=== PATIENT | male | born 1970 | race Caucasian/White ===

== ENCOUNTER 2021-09-10 08:25 | Day surgery (SDC) | payer BC, SELFPAY ==
[2021-09-10 08:53] VITALS: BMI 31.8
[2021-09-10 09:01] LABS: COVID19 -Nasal RAPID Negative (Negative)
--- NOTE | 2021-09-10 09:24 | PM.HP.1 ---
History of Present Illness History of Present Illness Date Patient Seen: 09/10/21 Time Patient Seen: 09:25 Chief complaint: SDC Narrative: The patient presents for colorectal sreening. They have never had any previous examination for such. No personal or family history of colon cancer. On further history denies any recent gastrointestinal symptoms. No nausea, vomiting, abdominal pain, loss of appetite, unexplained weight loss, change in bowel habits, diarrhea, constipation, melena, hematochezia, or bright red blood per rectum. Patient History Medical History Dilated aortic root HTN (hypertension) Hyperlipidemia Hypothyroidism (acquired) Family & Social History Social History: household members spouse Tobacco & Substance use: Smoking Status Never smoker alcohol intake current Meds Home Medications and Allergies Home Medications Medication Instructions Recorded Confirmed Type atorvastatin 20 mg tablet 20 mg PO DAILY 05/18/21 09/10/21 History levothyroxine 50 mcg tablet 50 mcg PO DAILY 05/18/21 09/10/21 History losartan 100 mg tablet 100 mg PO DAILY 05/18/21 09/10/21 History Allergies Allergy/AdvReac Type Severity Reaction Status Date / Time No Known Drug Allergies Allergy Verified 09/10/21 08:51 Exam Narrative Exam Narrative: Constitutional-he is oriented to person, place and time. No apparent distress Cardiovascular- regular rate, no peripheral edema Pulmonary-unlabored respiratory effort, no audible wheezing Musculoskeletal-no cyanosis or clubbing Skin-warm and dry Objective Labs Labs: Laboratory Results - last 24 hr 09/10/21 08:35 SARS-CoV-2 (PCR) Negative Assessment & Plan Assessment & Plan narrative: The patient requires colorectal screening and colonoscopy is recommended. Technical details were discussed. Risks, benefits, alternatives explained. Risks including but not limited to myocardial infarction, aspiration, bleeding, pain, missed lesion, incomplete examination, need for further radiographic studies, colonic perforation, and need for major abdominal surgery were discussed. All questions were answered to their satisfaction, and they are in agreement with this plan. Time Spent With Patient Critical Care time: I spent a total of [] minutes of critical care time on this patient's care today; this time is exclusive of procedural time.
[2021-09-10] MEDS: LACTATED RINGERS 1,000 ML 84 ML IV (09:29)
[2021-09-10 09:31] VITALS: BP 142/89; PULSE 80; RESP 16; TEMP 36.6; O2SAT 97
[2021-09-10] MEDS: fentaNYL 250 MCG/5 ML INJ IV (09:35)
[2021-09-10] MEDS: MIDAZOLAM 5 MG/5 ML VIAL IV (09:37)
--- NOTE | 2021-09-10 09:54 | P.OP.COLON_ITS ---
Operative Date/Time/Diagnoses Date of procedure: 09/10/21 Time of procedure: 09:54 Pre-op diagnosis: Screening colonoscopy Post-op diagnosis: same Procedure & Clinicians Study performed: Colonoscopy Same procedure as scheduled: Yes Indications: Screening no previous endoscopy Surgeon: Sergio Weiner Procedure Notes Procedure in detail: Medications: Conscious sedation using 6 mg IV midazolam and 150 mcg IV of fentanyl The history and physical was performed/updated and the patient is ASA class is 2. The procedure was discussed in detail with the patient. Potential risks complications including infection, bleeding, missed diagnosis, perforation, need for surgery, and were explained. Their questions were answered and informed consent was obtained. Patient was brought to the procedure room and placed standard monitoring equi pment. The patient's vital signs were monitored continuously throughout the entire procedure. Prior to starting time-out was performed. The patient was placed in the left lateral recumbent position. Procedural sedation was administered. Examination began with a thorough inspection of the perianal area there was no evidence of fissures, fistulae, external hemorrhoids or cutaneous malignancy. The colonoscopy scope was then placed into the anal canal and was advanced to the cecum, which was identified by the ileocecal valve, the appendiceal orifice and the confluence of the taenia. The scope was then slowly withdrawn examining colon thoroughly in all directions, irrigating it of any residual stool. FINDINGS 1. No masses polyps or inflammation 2. Normal healthy colon The patient tolerated the procedure well. They will be discharged once criteria are met. The prep was of good/excellent quality. The withdrawl time was 8 minutes. The sedation time was 22 minutes. Specimen(s): none sent Complications: none Impression: Normal colonoscopy Post-procedure Recommendations: Colonoscopy in 10 years Disposition: same day surgery
[2021-09-10 09:57] VITALS: BP 122/80; PULSE 83; RESP 16; TEMP 36.3; O2SAT 95
[2021-09-10 10:02] VITALS: BP 119/83; PULSE 82; RESP 14; O2SAT 96
[2021-09-10 10:06] VITALS: BP 124/86; PULSE 72; RESP 14; TEMP 36.2; O2SAT 96
[2021-09-10 10:21] VITALS: BP 120/81; PULSE 69; RESP 12; TEMP 36.1; O2SAT 95
[2021-09-10 10:32] VITALS: BP 109/79; PULSE 65; RESP 12; TEMP 36.4; O2SAT 95
== END 2021-09-10 10:40 | disposition home or self-care (01) ==
PROVIDERS: PCP Family Medicine; Referring Provider Surgery; Visit Provider Surgery
PROC: 0DJD8ZZ Inspection of Lower Intestinal Tract, Via Natural or Artificial Opening Endoscopic (ICD-10-PCS; CPT 45378; principal; 2021-09-10 09:15)
DX: Z12.11 Encounter for screening for malignant neoplasm of colon (principal); I10 Essential (primary) hypertension; E78.5 Hyperlipidemia, unspecified; E03.9 Hypothyroidism, unspecified
CPT/HCPCS: 45378; 87635; 89321; 99152; J2250; J3010

== ENCOUNTER → 2021-09-10 11:00 | Outpatient (CLI) | payer BC, SELFPAY ==
[2021-09-10 15:03] LABS: Semen Sperm Prescence Post-Vas Absent (ABSENT)
== END ==
PROVIDERS: PCP Family Medicine; Referring Provider Family Medicine; Visit Provider Family Medicine
DX: Z30.2 Encounter for sterilization (principal)
CPT/HCPCS: 89321

== ENCOUNTER → 2022-03-08 11:51 | Outpatient (CLI) | payer BC, SELFPAY ==
[2022-03-08 12:50] LABS: Add Manual Diff / Slide Review NO; Basophils Absolute Auto 100 /uL (0-100); Basophils Percent Auto 1.5 % (0-2); Eosinophils Absolute Auto 200 /uL (0-450); Eosinophils Percent Auto 3.9 % (2-4); Hematocrit 43.2 % (41-53); Hemoglobin 14.8 g/dL (13.5-17.5); Lymphocytes Absolute Auto 1500 /uL (1100-4500); Lymphocytes Percent Auto 30.3 % (25-40); Mean Corpuscular HGB Conc 34.3 % (30-36); Mean Corpuscular Hemoglobin 31.8 PG (26-34); Mean Corpuscular Volume 92.8 fL (80-100); Monocytes Absolute Auto 600 /uL (0-900); Monocytes Percent Auto 11.6 % (3-14); Neutrophils Absolute Auto 2600 /uL (1500-7000); Neutrophils Percent Auto 52.7 % (50-75); Platelet Count 222 X10^3/uL (150-400); Red Blood Cell Count 4.66 X10^6/uL (4.5-5.9); Red Cell Distribution Width 13.1 % (11.6-14.8)
[2022-03-08 13:16] LABS: Alanine Aminotransferase 51 IU/L (<50); Albumin 4.4 g/dL (3.5-5.0); Albumin Globulin Ratio 1.5 (1.0-2.8); Alkaline Phosphatase 63 U/L (38-126); Aspartate Aminotransferase 42 IU/L (17-59); BUN Creatinine Ratio 16.2 (6-22); Bilirubin Total 1.1 mg/dL (0.2-1.3); Blood Urea Nitrogen 17 mg/dL (9-20); Calcium 9.1 mg/dL (8.4-10.2); Carbon Dioxide 31 mmol/L (22-32); Chloride 102 mmol/L (98-107); Cholesterol 166 mg/dL (140-199); Estimated Glomerular Filt Rate > 60 mL/min (>60); Glucose 87 mg/dL (70-100); HDL Cholesterol 49 mg/dL (40-60); HEMOLYSIS < 15 (0-50); LDL Cholesterol Calculated 102 mg/dL (<100); Potassium 4.5 mmol/L (3.4-5.1); Sodium 138 mmol/L (137-145); Total Protein 7.4 g/dL (6.3-8.2); Triglycerides 76 mg/dL (35-150)
[2022-03-08 13:31] LABS: Free T3, Triiodothyronine Free 3.11 pg/mL (2.77-5.27); Free T4, Direct Thyroxine 0.98 ng/dL (0.78-2.19)
[2022-03-08 13:44] LABS: Prostate Specific Antigen Scrn 0.633 ng/mL (0.1-4.0)
== END ==
PROVIDERS: PCP Family Medicine; Referring Provider Family Medicine; Visit Provider Family Medicine
DX: E03.9 Hypothyroidism, unspecified (principal); E78.5 Hyperlipidemia, unspecified; I10 Essential (primary) hypertension; Z12.5 Encounter for screening for malignant neoplasm of prostate
CPT/HCPCS: 36415; 80053; 80061; 84439; 84443; 84481; 85025; G0103

== ENCOUNTER → 2023-06-11 08:00 | Outpatient (CLI) | payer BC, SELFPAY ==
--- NOTE | 2023-06-11 08:02 | DI.ECHO.S_ITS ---
[facility] +---------+ : : [address] [place] : : : : [id number] : : : : Phone: [phone] Echocardiogram Report + + :Name: CLINT MILNER Study Date: 06/11/2023 Height: 72 in : :[facility] ReadingLocation: Weight: 230 lb : : Gender: Male BSA: 2.3 m2 : :: 1970 Age: 53 yrs BP: 139/102 mmHg: :Reason For Study: DILATED AORTIC ROOT : :Ordering Physician: ESTRELLA, : :CLARA Performed By: Rosario Wallace : :Referring: CLARA DE LA ROSA : + + Interpretation Summary 1) Normal left ventricular thickness, size, wall motion, and systolic function (EF 55-60%). 2) Normal right ventricular size and function. 3) Aortic valve is possibly bicuspid. No stenoses or regurgitatoin present. 4) Aortic root is mildly to moderately dilated at 4.5cm. 5) No prior Echo avaliable for comparison. Procedure: A two-dimensional transthoracic echocardiogram with color flow and Doppler was performed. The study quality was technically adequate. There is no prior echocardiogram noted for this patient. The patient was in sinus bradycardia with heart rates between 53-60 bpm during the exam. Left Ventricle: The left ventricle is normal in size and wall thickness. The ejection fraction is estimated to be 55-60%. Left ventricular systolic function appears normal without focal wall motion abnormalities. Diastolic parameters suggest probable normal left ventricular diastolic function and normal filling pressures. Right Ventricle: The right ventricle is normal in size and function. Atria: The left atrial size is normal. Right atrial size is normal. There is no Doppler evidence for an interatrial shunt. Mitral Valve: The mitral valve is normal in structure and function. There is mild mitral regurgitation. Aortic Valve: The aortic valve opens well. Aortic valve is possibly bicuspid. There is no aortic valve stenosis. No aortic regurgitation is present. Tricuspid Valve: The tricuspid valve is normal in structure but is abnormal in function. No tricuspid regurgitation. Pulmonary artery pressures cannot be estimated because of the lack of a measurable TR jet velocity. Pulmonic Valve: The pulmonic valve leaflets are thin and pliable; valve motion is normal. There is no pulmonic valvular regurgitation. Great Vessels: Aortic root is mildly to moderately dilated at 4.5cm. The dimensions of the ascending aorta are normal. The IVC is of normal diameter and collapses greater than 50% with a sniff. This suggests a low right atrial pressure of 3 mm Hg. Pericardium/ Pleura There is no pericardial effusion. There is no pleural effusion. MMode/2D Measurements & Calculations LVIDd: 5.0 cm LVOT diam: 2.5 cm LVIDs: 3.6 cm Ao root diam: 4.5 cm FS: 28.8 % asc Aorta Diam: 3.4 cm EPSS: 0.78 cm Ao Arch Diam (Prox Trans): 2.7 cm IVSd: 0.94 cm LVPWd: 0.65 cm LV jo. diameter/BSA (cm/m^2): 2.2 LV sys. diameter/BSA (cm/m^2): 1.6 LA A2 area: 17.0 cm2 RA long axis: 4.7 cm LA A4 area: 13.1 cm2 RA area: 11.3 cm2 LA length (vol): 4.2 cm RA vol: 23.0 ml LA vol: 45.1 ml RA : 10.2 ml/m2 LA vol index: 20.0 ml/m2 IVC diam: 1.7 cm RVD1 (basal): 3.5 cm RVD2 (mid): 3.4 cm TAPSE: 1.7 cm Doppler Measurements & Calculations Ao V2 max: 99.1 cm/sec LVOT Max Tim: 103.3 cm/sec Ao V2 mean: 71.2 cm/sec LV V1 max P.3 mmHg Ao max P.9 mmHg LV V1 VTI: 23.2 cm Ao mean P.3 mmHg SINCERE(I,D): 4.8 cm2 Ao V2 VTI: 24.4 cm SINCERE(V,D): 5.3 cm2 sev ratio: 0.95 SINCERE indexed to BSA (cm^2/m^2): 2.1 MV E max tim: 80.7 cm/sec PA V2 max: 60.5 cm/sec MV A max tim: 51.0 cm/sec PA V2 mean: 38.8 cm/sec MV E/A: 1.6 PA mean P.71 mmHg Med Peak E' Tim: 8.4 cm/sec PA pr(Accel): 31.0 mmHg E/E' med: 9.6 Lat Peak E' Tim: 12.5 cm/sec E/E' lat: 6.5 E/e' average: 8.0 MV dec time: 0.21 sec SV(LVOT): 117.4 ml Reading Physician:09:43 AM
[2023-06-11 09:45] LABS: Hemoglobin A1C% w Est Avg Glu 5.4 % (4.0-6.0)
[2023-06-11 10:01] LABS: Alanine Aminotransferase 27 IU/L (<50); Albumin 4.2 g/dL (3.5-5.0); Albumin Globulin Ratio 1.4 (1.0-2.8); Alkaline Phosphatase 67 U/L (38-126); Aspartate Aminotransferase 26 IU/L (17-59); BUN Creatinine Ratio 16.5 (6-22); Bilirubin Total 0.8 mg/dL (0.2-1.3); Blood Urea Nitrogen 18 mg/dL (9-20); Calcium 9.4 mg/dL (8.4-10.2); Carbon Dioxide 30 mmol/L (22-32); Chloride 100 mmol/L (98-107); Cholesterol 186 mg/dL (140-199); Estimated Glomerular Filt Rate > 60 mL/min (>60); Globulin 2.9 g/dL (1.7-4.1); Glucose 93 mg/dL (70-100); HDL Cholesterol 54 mg/dL (40-60); HEMOLYSIS < 15 (0-50); LDL Cholesterol Calculated 118 mg/dL (<100); Potassium 4.3 mmol/L (3.4-5.1); Sodium 137 mmol/L (137-145); Total Protein 7.1 g/dL (6.3-8.2); Triglycerides 72 mg/dL (35-150)
[2023-06-11 10:30] LABS: Prostate Specific Antigen Scrn 0.885 ng/mL (0.1-4.0)
[2023-06-11 10:31] LABS: TSH w/ Reflex to FT4 5.09 uIU/mL (0.47-4.68)
[2023-06-11 11:25] LABS: Free T4, Direct Thyroxine 0.88 ng/dL (0.78-2.19)
== END ==
PROVIDERS: PCP Family Medicine; Referring Provider Family Medicine; Visit Provider Family Medicine
DX: I77.810 Thoracic aortic ectasia (principal); E03.9 Hypothyroidism, unspecified; I10 Essential (primary) hypertension; Z12.5 Encounter for screening for malignant neoplasm of prostate; E78.5 Hyperlipidemia, unspecified; I51.7 Cardiomegaly
CPT/HCPCS: 36415; 80053; 80061; 83036; 84439; 84443; 93306; G0103

== ENCOUNTER → 2024-04-17 13:51 | Outpatient (CLI) | payer BC, SELFPAY ==
--- NOTE | 2024-04-17 13:52 | DI.CT.S_ITS ---
PROCEDURE: CT CHEST WO CON INDICATIONS: dilated aortic root. needs monitor every 2 yrs TECHNIQUE: Noncontrast 5 mm thick sections acquired from the pulmonary apices to the posterior costophrenic angles. 1 mm lung window, 5 mm thick coronal and sagittal and 7 mm axial MIP reformats were then acquired. For radiation dose reduction, the following was used: automated exposure control, adjustment of mA and/or kV according to patient size. COMPARISON: None. FINDINGS: Image quality: Diagnostic. Lower Neck: No enlarged lymph nodes. Thyroid: No thyroid nodules which require sonographic follow up, per consensus guidelines. Axillae: No enlarged lymph nodes. Chest Wall: Unremarkable. Bones: Unremarkable. Lungs and Pleura: No pneumothorax or pleural effusions. No consolidation or suspicious nodules. Heart: Heart size is normal. No pericardial effusion. Thoracic Vessels: The aorta and pulmonary arteries demonstrate normal size above the aortic root. The aortic root measures 4.2 cm AP and 4.1 cm transverse.. Mediastinum and Subha: No enlarged lymph nodes. Esophagus: No wall thickening. No hiatal hernia. Upper Abdomen: Visualized upper abdomen solid organs and bowel loops appear normal. IMPRESSION: Mildly prominent aortic root, normal caliber of the aorta above and beyond this area. No sign of cardiomegaly. Dictated by: Kofi Vieyra M.D. on 04/17/2024 at 21:06 Approved by: Kofi Vieyra M.D. on 04/17/2024 at 21:07
== END ==
LOC: CT 13:51
PROVIDERS: PCP Family Medicine; Referring Provider Family Medicine; Visit Provider Family Medicine
DX: I77.810 Thoracic aortic ectasia (principal); I10 Essential (primary) hypertension
CPT/HCPCS: 71250

== ENCOUNTER → 2024-06-11 07:58 | Outpatient (CLI) | payer BC, SELFPAY ==
[2024-06-11 08:34] LABS: Hemoglobin A1C% w Est Avg Glu 5.6 % (4.0-6.0)
[2024-06-11 08:49] LABS: Alanine Aminotransferase 31 IU/L (<50); Albumin 4.2 g/dL (3.5-5.0); Albumin Globulin Ratio 1.5 (1.0-2.8); Alkaline Phosphatase 67 U/L (38-126); Aspartate Aminotransferase 28 IU/L (17-59); BUN Creatinine Ratio 25.7 (6-22); Bilirubin Total 0.7 mg/dL (0.2-1.3); Blood Urea Nitrogen 27 mg/dL (9-20); Calcium 9.3 mg/dL (8.4-10.2); Carbon Dioxide 28 mmol/L (22-32); Chloride 104 mmol/L (98-107); Cholesterol 173 mg/dL (140-199); Estimated Glomerular Filt Rate > 60 mL/min (>60); Globulin 2.8 g/dL (1.7-4.1); Glucose 98 mg/dL (70-100); HDL Cholesterol 51 mg/dL (40-60); HEMOLYSIS < 15 (0-50); LDL Cholesterol Calculated 102 mg/dL (<100); Potassium 4.3 mmol/L (3.4-5.1); Sodium 138 mmol/L (137-145); Triglycerides 101 mg/dL (35-150)
[2024-06-11 09:14] LABS: Prostate Specific Antigen 0.646 ng/mL (0.10-4.00)
[2024-06-11 09:16] LABS: TSH w/ Reflex to FT4 5.48 uIU/mL (0.47-4.68)
== END ==
PROVIDERS: PCP Family Medicine; Referring Provider Family Medicine; Visit Provider Family Medicine
DX: Z00.00 Encounter for general adult medical examination without abnormal findings (principal); E03.9 Hypothyroidism, unspecified; I10 Essential (primary) hypertension; E78.5 Hyperlipidemia, unspecified
CPT/HCPCS: 36415; 80053; 80061; 83036; 84153; 84439; 84443

== ENCOUNTER → 2025-07-05 16:09 | Outpatient (CLI) | payer OTHER, SELFPAY ==
--- NOTE | 2025-07-05 16:10 | DI.ECHO.S_ITS ---
[facility]---------+ [facility] : : [address] : [place] : : [id number] : : Phone: [phone] Echocardiogram Report + + :Name: CLINT MILNER Study Date: 07/05/2025 Height: 72 in : :Hospital ReadingLocation: Weight: 238 lb : : Gender: Male BSA: 2.3 m2 : :: 1970 Age: 55 yrs BP: 139/87 mmHg: :Reason For Study: Dilated aortic root : :Ordering Physician: CLARA DE LA ROSA Performed By: Goran Irvin : :Referring: CLARA DE LA ROSA : + + Interpretation Summary The left ventricle is normal in size and wall thickness. Left ventricular systolic function is normal. The ejection fraction is estimated to be 55-60%. There are no focal wall motion abnormalities. Normal diastolic function. The right ventricle is normal in size and function. Pulmonary artery pressures cannot be estimated because of the lack of a measurable TR jet velocity but the IVC suggests a CVP of around 3 mmHg. The left atrial size is normal. The aortic valve is bicuspid. There is no aortic valve stenosis. Aortic root at the area of the sinuses of Valsalva is dilated with a max diameter of 4.5 cm. This remains unchanged when compared to previous echo scanned on 06/11/2023. The ascending aorta is mildly enlarged. Procedure: A two-dimensional transthoracic echocardiogram with color flow and Doppler was performed. The study quality was technically adequate. Comparison is made with the echocardiogram of 06/11/2023. The heart rate ranged between 58-70 bpm during the study. Left Ventricle: The left ventricle is normal in size and wall thickness. Left ventricular systolic function is normal. The ejection fraction is estimated to be 55-60%. There are no focal wall motion abnormalities. Normal diastolic function. Right Ventricle: The right ventricle is normal in size and function. Atria: The left atrial size is normal. Right atrial size is normal. There is no Doppler evidence for an interatrial shunt. Mitral Valve: The mitral valve leaflets appear to open well. There is no mitral valve stenosis. There is trace mitral regurgitation. Aortic Valve: The aortic valve is bicuspid. There is no aortic valve stenosis. The aortic valve area is 4.1 centimeters squared by planimetry. The calculated aortic valve area is 4.9 cm2. The peak aortic velocity is 1.0 m/sec. There is no aortic regurgitation. Tricuspid Valve: The tricuspid valve leaflets are thin and pliable. There is trace tricuspid regurgitation. Pulmonary artery pressures cannot be estimated because of the lack of a measurable TR jet velocity but the IVC suggests a CVP of around 3 mmHg. Pulmonic Valve: The pulmonic valve is not well seen, but is grossly normal. There is trace pulmonic regurgitation. Great Vessels: Aortic root at the area of the sinuses of Valsalva is dilated with a max diameter of 4.5 cm. This remains unchanged when compared to previous echo scanned on 06/11/2023. The ascending aorta is mildly enlarged. The pulmonary is not well visualized. The IVC is of normal diameter and collapses greater than 50% with a sniff. This suggests a low right atrial pressure of 3 mm Hg. Pericardium/ Pleura There is no pericardial effusion. MMode/2D Measurements & Calculations LVIDd: 5.4 cm LVOT diam: 2.6 cm LVIDs: 2.8 cm Ao root diam: 4.5 cm FS: 47.9 % asc Aorta Diam: 3.6 cm EPSS: 2.6 cm IVSd: 0.89 cm LVPWd: 1.0 cm LV jo. diameter/BSA (cm/m^2): 2.4 LV sys. diameter/BSA (cm/m^2): 1.2 LA A2 area: 19.0 cm2 RA long axis: 5.2 cm LA A4 area: 17.5 cm2 RA area: 14.1 cm2 LA length (vol): 5.8 cm RA vol: 32.3 ml LA vol: 49.0 ml RA : 14.1 ml/m2 LA vol index: 21.4 ml/m2 IVC diam: 1.9 cm RVD1 (basal): 3.4 cm RVD2 (mid): 2.7 cm TAPSE: 2.9 cm Doppler Measurements & Calculations Ao V2 max: 101.2 cm/sec LVOT Max Tim: 94.5 cm/sec Ao V2 mean: 73.5 cm/sec LV V1 max P.6 mmHg Ao max P.1 mmHg LV V1 VTI: 19.9 cm Ao mean P.4 mmHg SINCERE(I,D): 5.3 cm2 Ao V2 VTI: 19.7 cm SINCERE(V,D): 4.9 cm2 sev ratio: 1.0 SINCERE indexed to BSA (cm^2/m^2): 2.3 MV E max tim: 81.5 cm/sec PA V2 max: 87.7 cm/sec MV A max tim: 55.5 cm/sec PA V2 mean: 63.5 cm/sec MV E/A: 1.5 PA mean P.7 mmHg Med Peak E' Tim: 9.3 cm/sec PA pr(Accel): 30.2 mmHg E/E' med: 8.7 Lat Peak E' Tim: 10.5 cm/sec E/E' lat: 7.7 E/e' average: 8.2 MV dec time: 0.25 sec SV(LVOT): 104.5 ml Reading Physician:05:26 PM
== END ==
LOC: ECHO 16:10
PROVIDERS: PCP Family Medicine; Referring Provider Family Medicine; Visit Provider Family Medicine
DX: Q23.81 Bicuspid aortic valve (principal); I77.810 Thoracic aortic ectasia; I10 Essential (primary) hypertension; R73.01 Impaired fasting glucose; I77.89 Other specified disorders of arteries and arterioles
CPT/HCPCS: 93306